=== PATIENT | male | born 1950 | race Caucasian/White ===

== ENCOUNTER → 2019-12-16 10:35 | Outpatient (CLI) | payer OTHER, SELFPAY ==
[2019-10-30 12:54] VITALS: BMI 36.2
--- NOTE | 2019-12-17 08:11 | PFT ---
INTRODUCTION: The patient is a 68-year-old male that presents for pulmonary function studies secondary to a diagnosis of dyspnea on exertion. Respiratory therapy reports good patient effort. Bronchodilators were used during testing. INTERPRETATION: Forced expiration spirometry demonstrates no evidence of any large airways obstructive ventilatory defect. There was no significant response to aerosolized bronchodilators. Spirograms are of good quality and plateau normally. Body plethysmography was performed and reveals lung volumes to be within normal limits. Diffusing capacity by single breath CO is also within normal limits. IMPRESSION: Grossly normal pulmonary function studies.
== END ==
PROVIDERS: Referring Provider Internal Medicine Critical Care Medicine; Visit Provider Internal Medicine Critical Care Medicine
DX: R06.00 Dyspnea, unspecified (principal)
CPT/HCPCS: 94060; 94726; 94729

== ENCOUNTER → 2019-12-17 12:39 | Outpatient (CLI) | payer OTHER, SELFPAY ==
[2019-10-30 12:54] VITALS: BMI 36.2
[2019-12-17 12:45] VITALS: PULSE 112; PULSE 114; PULSE 115; PULSE 119; PULSE 122; PULSE 123; PULSE 95; PULSE 98; O2SAT 93; O2SAT 94; O2SAT 96; O2SAT 97
--- NOTE | 2019-12-19 08:40 | PCM.PSN.6M ---
PSN 6 Minute Walk Test - 6 Minute Walk Test 6 Minute Walk Test: 6 Minute Walk Test PSN:6-Minute Walk Test Start: 12/17/19 14:00 Freq: Status: Active Protocol: [id number].6MINW Document 12/17/19 12:45 FR (Rec: 12/17/19 14:06 FR [id number]) 6 Minute Walk Test Date Performed 12/17/19 Time Performed 12:45 Height 5 ft 10.87 in Weight: 258 lb Weight in Pounds 258.[address]: Dr. Mora Assistive device used: None Pre-test Oxygen Delivery Method Room Air Pulse Ox (%) 97 Pulse Rate (60-100 beats/min) 95 Dyspnea Du Scale (0-10) 2 Exertion Du Scale (6-20) 7 1st minute Oxygen Delivery Method Room Air Pulse Ox (%) 96 Pulse Rate (60-100 beats/min) 112 H 2nd minute Oxygen Delivery Method Room Air Pulse Ox (%) 93 Pulse Rate (60-100 beats/min) 114 H 3rd minute Oxygen Delivery Method Room Air Pulse Ox (%) 93 Pulse Rate (60-100 beats/min) 115 H 4th minute Oxygen Delivery Method Room Air Pulse Ox (%) 94 Pulse Rate (60-100 beats/min) 119 H 5th minute Oxygen Delivery Method Room Air Pulse Ox (%) 93 Pulse Rate (60-100 beats/min) 122 H 6th minute Oxygen Delivery Method Room Air Pulse Ox (%) 93 Pulse Rate (60-100 beats/min) 123 H Dyspnea Du Scale (0-10) 1 Exertion Du Scale (6-20) 8 Post-test Oxygen Delivery Method Room Air Pulse Ox (%) 96 Pulse Rate (60-100 beats/min) 98 Full Laps Walked 22 Partial Lap, Number of Tiles Walked 57 Total Distance Walked (ft) 1355 - Interpretation Interpretation: The patient ambulated 1355 feet over the course of 6 minutes beginning on room air without assistive devices or breaks. Pretesting oxygen saturation was noted to be 97% on room air. With ambulation, the emerald oxygen saturation was 93%. Although there was no significant exertional oxygen desaturation, the patient did become progressively tachycardic with exertion. - Recommendations Recommendations: There is no indication for the use of supplemental oxygen at this time.
== END ==
PROVIDERS: Referring Provider Internal Medicine Critical Care Medicine; Visit Provider Internal Medicine Critical Care Medicine
DX: R06.00 Dyspnea, unspecified (principal)
CPT/HCPCS: 94618

== ENCOUNTER 2020-07-19 07:46 | Day surgery (SDC) | payer OTHER, SELFPAY ==
[2020-06-29 10:24] VITALS: BMI 37.6
[2020-07-19] VITALS (10 sets, daily range): BP systolic 92–133; BP diastolic 60–79; PULSE 76–96; RESP 15–18; TEMP 36.3–37.5; O2SAT 93–96; BMI 36.9
--- NOTE | 2020-07-19 07:00 | HP_ITS ---
Intake Vital Signs 06/29/20 Height 5 ft 10 in 06/29/20 Weight: 262 lb 8 oz 06/29/20 BMI 37.6 06/29/20 BP 143/74 H 06/29/20 Blood Pressure Location Rt brachial 06/29/20 Position Sitting 06/29/20 Respiration 18 06/29/20 Pulse 80 06/29/20 Pulse Source NIBP 06/29/20 Temp 98.2 F 06/29/20 Temp Source Temporal 06/29/20 Pulse Oximetry (%) 97 06/29/20 Oxygen Delivery Method room air Intake Visit Reasons: C-SCOPE Chief Complaint: colonoscopy Seaman Required: No Is patient in pain?: No Allergies metoprolol Adverse Reaction (Mild, Verified 06/29/20 10:25) GI upset atorvastatin [From Lipitor] Adverse Reaction (Verified 03/31/20 11:06) muscle aches Medications alogliptin 25 mg tablet 25 mg PO DAILY 10/30/19 [History Confirmed 06/29/20] aspirin 81 mg tablet,delayed release 81 mg PO DAILY 10/30/19 [History Confirmed 06/29/20] finasteride 5 mg tablet 5 mg PO DAILY 10/30/19 [History Confirmed 06/29/20] fluticasone propionate 50 mcg/actuation nasal spray,suspension 1 spray INTRANASAL DAILY 10/30/19 [History Confirmed 06/29/20] glipizide 10 mg tablet 10 mg PO DAILY 10/30/19 [History Confirmed 06/29/20] insulin glargine 100 unit/mL subcutaneous solution 50 unit SC QPM 10/30/19 [History Confirmed 06/29/20] isosorbide dinitrate 30 mg tablet 30 mg PO ONCE tab 10/30/19 [History Confirmed 06/29/20] losartan 25 mg tablet 25 mg PO DAILY 10/30/19 [History Confirmed 06/29/20] metoprolol succinate 25 mg capsule sprinkle, ext. release 24 hr 25 mg PO DAILY 10/30/19 [History Confirmed 06/29/20] omega 8-hau-lci-fish oil 1,000 mg (120 mg-180 mg) capsule 1 cap PO DAILY 10/30/19 [History Confirmed 06/29/20] omeprazole 20 mg capsule,delayed release 20 mg PO DAILY 10/30/19 [History Confirmed 06/29/20] rosuvastatin 40 mg sprinkle capsule 40 mg PO DAILY 10/30/19 [History Confirmed 06/29/20] tamsulosin 0.4 mg capsule 0.4 mg PO DAILY 10/30/19 [History Confirmed 06/29/20] multivitamin 1 tablet PO DAILY 06/29/20 [History Confirmed 06/29/20] pregabalin 50 mg capsule 50 mg PO TID 06/29/20 [History Confirmed 06/29/20] psyllium husk 0.52 gram capsule 0.52 gm PO DAILY 06/29/20 [History Confirmed 06/29/20] [facility] Medical History (Updated 06/29/20 @ 10:16 by Shantel Díaz) Pulmonary embolism (Resolved) Angina at rest (Acute) Neuropathy (Acute) Diabetes (Acute) BPH (benign prostatic hyperplasia) (Acute) CAD (coronary artery disease) (Acute) GERD (gastroesophageal reflux disease) (Acute) History of colon polyps (Acute) Hyperlipidemia (Acute) Renal calculi (Acute) Sleep apnea (Acute) Anemia (Resolved) Surgical History (Updated 06/29/20 @ 10:23 by Shantel Díaz) Hx of appendectomy (Resolved) History of colonoscopy (Acute) History of esophagogastroduodenoscopy (EGD) (Acute) History of cholecystectomy (Resolved) Family History Father CVA (cerebral vascular accident) Mother Heart disease Brother Heart disease Cancer Social History (Updated 06/29/20 @ 10:[address] Tracie Dior MD) Smoking Status: Former smoker quit date: 03/26/99 pack-years: 23 HPI HPI HPI: HENOK ORTEGA, is a 69 M who presents to the office today for HPI HPI Surgical H&P: Yes HPI: HENOK ORTEGA, is a 69 M who presents to the office today for colonoscopy due to multiple colon polyps as well as poor prep. Patient last colonoscopy was in August 2018 at the [facility]. 6 polyps were removed all less than 8 mm in size. Due to note patient had poor prep and recommended a repeat colonoscopy in 1 year. Patient states he has bowel once daily denies any blood denies any abdominal pain. Denies any family history of colon cancer. Patient does take an 81 mg aspirin. Patient states he was having a little bit issue with constipation but did increase his fiber which did help. ROS General General: Yes fatigue; no weight change, appetite, colon cancer, breast cancer or weakness HEENT HEENT: No difficulty swallowing, eye injury, eye surgery, swollen glands or hoarseness Endo Endocrine: Yes diabetes mellitus; no thyroid disease, thyroid cancer, Hair loss, heat intolerance or cold intolerance Musc Musculoskeletal: Yes back problems and arthritis; no rheumatoid arthritis, gout or joint pain Cardio Cardiovascular: Yes heart disease and high blood pressure; no pacemaker, atrial fibrillation, heart attack, heart stent, palpitations, shortness of breat with exertion or chest pain Psych Psychiatric: No depression, anxiety or hearing voices Resp Respiratory: No shortness of breath, No sleep apnea, No cough, No COPD, No asthma, No emphysema, No wheezing Gastro Gastrointestinal: No abdominal pain, No nausea or vomiting, No diarrhea, Yes constipation, No blood in stool, No acid reflux, No hemorrhoids, No ulcers, No gallbladder problem, No black,tarry stools Yordan Hematologic: No blood thinners, No blood disorders, No bleeding, No anemia, No blood clots Additional Details: history of pulmonary embolism Neuro Neurologic: No weakness Exam Const General: cooperative, comfortable, no acute distress Resp Effort & Inspection: normal respiratory effort Cardio Rate: regular rate GI Inspection: non-distended Palpation: soft, no guarding, nontender Psych Affect: normal affect Assessment & Plan Problems 1. Hx of colonic polyp Z86.010 Plan We will repeat colonoscopy last one was done in August 2018 due to multiple polyps as well as poor prep. I have discussed the above with the patient. I have offered the patient colonoscopy for evaluation. Scheduled for 07/19/2020 I have explained the risks/benefits of the procedure and described the procedure. I have discussed the risks with the patient, including but not limited to: infection, bleeding, perforation of the GI tract requiring emergency surgery, inability to complete the procedure, injury to any internal organs, complications of anesthesia, etc. - the patient understands and agrees to proceed. I have answered all the patient's questions to the patient's satisfaction and the patient has no further questions. The patient has been given instructions for the colon cleansing preparation. Mov[facility] will have patient take both doses day prior Tracie Dior M.D. Pager: [phone] [facility] [address] [place] [address], [facility] [address] [place] [address] Office: [phone] Plan Detail Follow Up We will schedule colonoscopy Coding Level of Care Code Off vis,new,level 3 Diagnoses Hx of colonic polyp Z86.010 COVID (Procedure Consent) Procedure Criteria Procedure Criteria: Yes Elective The surgeon/proceduralist and patient have discussed in detail the risk of exposure to and/or potential harm posed by the COVID-19 virus with having a surgery/procedure at this time versus the risk of? delaying the surgery/procedure. It is not possible to know either the risk of delaying the surgery or procedure or chance of getting an infection with perfect accuracy, but a joint decision was made between the patient and the surgeon/proceduralist ?to proceed at this time with the scheduled surgery/procedure as indicated on the consent form. I have re-examined the patient. There are no clinical changes since date of exam.
[2020-07-19] MEDS: Lactated Ringers 1,000 ML 100 ML IV (08:28)
[2020-07-19 08:36] LABS: Bedside Glucose 143 mg/dL (70-110)
--- NOTE | 2020-07-19 09:00 | COLBX_PTH ---
PATIENT: HENOK ORTEGA LOC: EN U#:[id number] AGE/SX: 69/M ROOM: RE07/19/[address]: Dr. Tracie Dior MD : 1950 BED: DIS: 07/19/2020 SPEC #: [id number] RECD: 07/19/20 10:50 STATUS: ALBERT REAndrew #: [id number] SAVANNA: 07/19/20 09:[address]: Tracie Dior DEPT: SURGICAL PATHOLOGY RECD BY: Teri Kaur ENTERED: 07/19/20 10:59 SP TYPE: COLON BX SAMUEL DR: [facility] Tissues: Sigmoid colon biopsy Procedures: Surgery Specimen Level IV HEADER OPERATION: Colonoscopy (MAC) PRE-OP DIAGNOSIS: Colonic polyp TISSUE SUBMITTED: Sigmoid colon polyp hot snare MICROSCOPIC DIAGNOSIS Sigmoid colon polyp, biopsy: Tubular adenoma. AM:ralph 07/20/2020 MICROSCOPIC DESCRIPTION Slides are reviewed. GROSS DESCRIPTION Received in fixative is one container labeled with the patient's name and designated sigmoid colon polyp. The specimen consists of a herrera-pink polyp measuring 0.5 x 0.5 x 0.3 cm. The specimen is totally submitted in one cassette. / SJ:ralph 07/19/20 TC:5 CPT: 63624
--- NOTE | 2020-07-19 14:58 | OP.CCLET_ITS ---
07/19/2020 [facility] Re : Colonoscopy procedure for [facility] This procedure was performed on Sunday, July 19, 2020. My impressions and recommendations are as follows: Impressions : - Hemorrhoids found on perianal exam. - Non-bleeding external and internal hemorrhoids. - Diverticulosis in the descending colon, at the splenic flexure and in the ascending colon. - One less than 5 mm polyp in the sigmoid colon, removed with a hot snare. Resected and retrieved. - The examination was otherwise normal. Recommendations : - Discharge patient to home. - High fiber diet. - Continue present medications. - Await pathology results. - Repeat colonoscopy in 5 years for surveillance based on pathology results. My findings are described in the full procedure note, which is enclosed. If I can be of further assistance, please feel free to contact me at Doctor phone number(s): , Work: . Sincerely, MD Tracie Mondragon MD 07/19/2020 9:27:03 AM This report has been signed electronically.
--- NOTE | 2020-07-19 14:58 | OP.COLON_ITS ---
Patient Name: Jaziel Paez Procedure Date: 07/19/2020 8:38 AM Date of : 1950 Age: 69 Procedure: Colonoscopy Indications: High risk colon cancer surveillance: Personal history of colonic polyps, poor prep with previous colonoscopy Providers: Tracie Dior MD Referring MD: Tracie Dior MD Medicines: Monitored Anesthesia Care Patient Profile: This is a 69 year old male. Last Colonoscopy: 2018. Complications: No immediate complications. Procedure: Pre-Anesthesia Assessment: - Prior to the procedure, a History and Physical was performed, and patient medications and allergies were reviewed. The patient's tolerance of previous anesthesia was also reviewed. The risks and benefits of the procedure and the sedation options and risks were discussed with the patient. All questions were answered, and informed consent was obtained. Prior Anticoagulants: The patient has taken aspirin, last dose was 1 day prior to procedure. ASA Grade Assessment: Per anesthesia. After reviewing the risks and benefits, the patient was deemed in satisfactory condition to undergo the procedure. After I obtained informed consent, the scope was passed under direct vision. Throughout the procedure, the patient's blood pressure, pulse, and oxygen saturations were monitored continuously. The adult colonoscope was introduced through the anus and advanced to the cecum, identified by the appendiceal orifice, ileocecal valve and palpation. The colonoscopy was performed without difficulty. The patient tolerated the procedure well. The quality of the bowel preparation was good after lavage. Scope In: 8:51:48 AM Scope Withdrawal Time 0 hours 22 minutes 12 seconds Scope Out: 9:20:45 AM Total Procedure Duration Time 0 hours 28 minutes 57 seconds Findings: Hemorrhoids were found on perianal exam. Non-bleeding external and internal hemorrhoids were found. The hemorrhoids were Grade I (internal hemorrhoids that do not prolapse). Many small and large-mouthed diverticula were found in the descending colon, splenic flexure and ascending colon. A less than 5 mm polyp was found in the sigmoid colon. The polyp was semi-sessile. The polyp was removed with a hot snare. Resection and retrieval were complete. The exam was otherwise without abnormality. Impression: - Hemorrhoids found on perianal exam. - Non-bleeding external and internal hemorrhoids. - Diverticulosis in the descending colon, at the splenic flexure and in the ascending colon. - One less than 5 mm polyp in the sigmoid colon, removed with a hot snare. Resected and retrieved. - The examination was otherwise normal. Recommendation: - Discharge patient to home. - High fiber diet. - Continue present medications. - Await pathology results. - Repeat colonoscopy in 5 years for surveillance based on pathology results. Procedure Code(s): --- Professional --- 27873, PT, Colonoscopy, flexible; with removal of tumor(s), polyp(s), or other lesion(s) by snare technique Diagnosis Code(s): --- Professional --- Z86.010, Personal history of colonic polyps K64.0, First degree hemorrhoids D12.5, Benign neoplasm of sigmoid colon K57.30, Diverticulosis of large intestine without perforation or abscess without bleeding CPT copyright 2017 [employer]. All rights reserved. The codes documented in this report are preliminary and upon smoking pipe mounter review may be revised to meet current compliance requirements. MD Tracie Mondragon MD 07/19/2020 9:27:03 AM This report has been signed electronically. Number of Addenda: 0 Note Initiated On: 07/19/2020 8:38 AM
== END 2020-07-19 11:02 | disposition home or self-care (01) ==
LOC: EN 07:46 → AC 07:47
PROVIDERS: Referring Provider Surgery; Visit Provider Surgery
PROC: 0DJD8ZZ Inspection of Lower Intestinal Tract, Via Natural or Artificial Opening Endoscopic (ICD-10-PCS; CPT 45378; principal; 2020-07-19 08:55)
DX: Z12.11 Encounter for screening for malignant neoplasm of colon (principal); D12.5 Benign neoplasm of sigmoid colon; K64.0 First degree hemorrhoids; K57.30 Diverticulosis of large intestine without perforation or abscess without bleeding; I25.10 Atherosclerotic heart disease of native coronary artery without angina pectoris; I10 Essential (primary) hypertension; I35.0 Nonrheumatic aortic (valve) stenosis; G47.30 Sleep apnea, unspecified; K21.9 Gastro-esophageal reflux disease without esophagitis; E11.40 Type 2 diabetes mellitus with diabetic neuropathy, unspecified; E78.5 Hyperlipidemia, unspecified; Z79.82 Long term (current) use of aspirin; Z79.4 Long term (current) use of insulin; Z79.899 Other long term (current) drug therapy; Z86.010 Personal history of colon polyps; Z87.891 Personal history of nicotine dependence
CPT/HCPCS: 45385; 82962; 88305; J7120; J2405

== ENCOUNTER 2022-07-19 07:32 | Day surgery (SDC) | payer OTHER, SELFPAY ==
[2022-07-19] VITALS (7 sets, daily range): BP systolic 118–141; BP diastolic 70–86; PULSE 75–98; RESP 16–18; TEMP 36.4–37.1; O2SAT 94–98; BMI 33.0
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
[2022-07-19] MEDS: Lactated Ringers 1,000 ML 15 ML IV (08:20)
[2022-07-19] MEDS: Dextrose 5%-Lactated Ringers 1,000 ML 15 ML IV (08:48)
--- NOTE | 2022-07-19 09:00 | IMM_PTH ---
PATIENT: HENOK ORTEGA LOC: EN U#:[id number] AGE/SX: 71/M ROOM: RE07/19/[address]: Dr. Tracie Dior MD : 1950 BED: DIS: 07/19/2022 SPEC #: [id number] RECD: 07/19/22 12:04 STATUS: ALBERT DHALIWAL #: [id number] SAVANNA: 07/19/22 09:[address]: Tracie Dior DEPT: IMMUNOHISTOCHEMISTRY RECD BY: Nicky Atkins ENTERED: 07/19/22 12:08 SP TYPE: IMMUNO OTHR DR: [facility] Tissues: A - Stomach, NOS Procedures: H Pylori (initial) PHYSICIAN & INSTITUTION [place] [id number] SPECIMEN INFORMATION: Tissue Source: A ? Antrum biopsy Clinical Info: GERD, diarrhea Specimen Number: [id number] CPT code: 32049 METHODOLOGY: Deparaffinized sections of prefer/formalin-fixed tissue or PAP/DQ stained slides are incubated with monoclonal/polyclonal antibodies/oligonucleotide probes. Localization is made via biotin free immunoperoxidase method. Appropriate controls are performed and reacted as expected. Results on target cell population are indicated in the following table: RESULTS: ANTIBODY / CLONE RESULT Block A H Pylori (polyclonal) negative These tests were developed and their performance characteristics determined by [facility]. They may not have been cleared or approved by the U.S. Food and Drug Administration. The FDA has determined that such clearance or approval is not necessary. The above immunohistochemical/dualISH markers are ordered and reviewed by the Pathologist. INTERPRETATION: A. Antrum, biopsy: Negative for Helicobacter pylori organisms. AM:ralph 07/20/2022
--- NOTE | 2022-07-19 09:00 | EGD_PTH ---
PATIENT: HENOK ORTEGA LOC: EN U#:[id number] AGE/SX: 71/M ROOM: RE07/19/[address]: Dr. Tracie Dior MD : 1950 BED: DIS: 07/19/2022 SPEC #: [id number] RECD: 07/19/22 10:50 STATUS: ALBERT DHALIWAL #: [id number] SAVANNA: 07/19/22 09:[address]: Tracie Dior DEPT: SURGICAL PATHOLOGY RECD BY: Teri Kaur ENTERED: 07/19/22 12:23 SP TYPE: EGD BIOPSY OT DR: [facility] Tissues: A - Gastric mucous membrane B - Gastric mucous membrane C - Sigmoid colon biopsy Procedures: Surgery Specimen Level IV HEADER OPERATION: Colonoscopy with biopsy, EGD ([place]) with biopsies PRE-OP DIAGNOSIS: GERD, diarrhea TISSUE SUBMITTED: A ? Antrum biopsy for H. pylori and path, B ? Gastric body nodule mucosal biopsy, C ? Sigmoid polyp biopsy MICROSCOPIC DIAGNOSIS A. Gastric antrum, biopsy: Chronic gastritis. See comment. B. Gastric body nodule, biopsy: Fragment of gastric mucosa with mild chronic inflammation. C. Sigmoid colon polyp, biopsy: Polypoid colonic mucosa with no pathologic change. AM:ralph 07/20/2022 COMMENT A. The results of immunohistochemistry for Helicobacter pylori will be reported separately ([id number]). MICROSCOPIC DESCRIPTION Slides are reviewed. GROSS DESCRIPTION A - Received in fixative is one container labeled with the patient's name and designated gastric antrum. The specimen consists of one irregular fragment of light herrera soft tissue that measures 0.6 x 0.5 x 0.1 cm. The specimen is totally submitted in one cassette. B - Received in fixative is one container labeled with the patient's name and designated gastric body. The specimen consists of one irregular fragment of light herrera soft tissue that measures 0.8 x 0.3 x 0.1 cm. The specimen is totally submitted in one cassette. C - Received in fixative is one container labeled with the patient's name and designated sigmoid polyp. The specimen consists of one irregular fragment of light herrera soft tissue that measures 0.5 x 0.5 x 0.1 cm. The specimen is totally submitted in one cassette. / AM:ralph 07/19/2022 TC:3 CPT: 30173 x3
--- NOTE | 2022-07-19 09:34 | OP.CCLET_ITS ---
07/19/2022 [facility] Re : Upper GI endoscopy procedure for [facility] This procedure was performed on Tuesday, July 19, 2022. My impressions and recommendations are as follows: Impressions : - Z-line regular, 40 cm from the incisors. - Erythematous mucosa in the antrum. Biopsied. - Nodular mucosa in the gastric body. Biopsied. - The examination was otherwise normal. Recommendations : - Discharge patient to home. - Resume previous diet. - Continue present medications. - Await pathology results. - Use sucralfate tablets 1 gram PO QID for 2 weeks. My findings are described in the full procedure note, which is enclosed. If I can be of further assistance, please feel free to contact me at Doctor phone number(s): , Work: . Sincerely, MD Tracie Mondragon MD 07/19/2022 9:34:01 AM This report has been signed electronically.
--- NOTE | 2022-07-19 09:34 | OP.EGD_ITS ---
Patient Name: Jaziel Paez Procedure Date: 07/19/2022 8:48 AM Date of : 1950 Age: 71 Procedure: Upper GI endoscopy Indications: Heartburn Providers: Tracie Dior MD Medicines: Monitored Anesthesia Care Patient Profile: This is a 71 year old male. Complications: No immediate complications. Procedure: Pre-Anesthesia Assessment: - Prior to the procedure, a History and Physical was performed, and patient medications and allergies were reviewed. The patient's tolerance of previous anesthesia was also reviewed. The risks and benefits of the procedure and the sedation options and risks were discussed with the patient. All questions were answered, and informed consent was obtained. Prior Anticoagulants: The patient has taken no previous anticoagulant or antiplatelet agents. ASA Grade Assessment: Per anesthesia. After reviewing the risks and benefits, the patient was deemed in satisfactory condition to undergo the procedure. After obtaining informed consent, the endoscope was passed under direct vision. Throughout the procedure, the patient's blood pressure, pulse, and oxygen saturations were monitored continuously. The Colonoscope was introduced through the mouth, and advanced to the second part of duodenum. The upper GI endoscopy was accomplished without difficulty. The patient tolerated the procedure well. Scope In: 8:58:16 AM Scope Out: 9:03:42 AM Total Procedure Duration Time 0 hours 5 minutes 26 seconds Findings: The Z-line was regular and was found 40 cm from the incisors. The cardia and gastric fundus were normal on retroflexion. Striped moderately erythematous mucosa without bleeding was found in the gastric antrum. Biopsies were taken with a cold forceps for histology. Biopsies were taken with a cold forceps for Helicobacter pylori cultures. Nodular mucosa was found in the gastric body. Biopsies were taken with a cold forceps for histology. The exam was otherwise without abnormality. Impression: - Z-line regular, 40 cm from the incisors. - Erythematous mucosa in the antrum. Biopsied. - Nodular mucosa in the gastric body. Biopsied. - The examination was otherwise normal. Recommendation: - Discharge patient to home. - Resume previous diet. - Continue present medications. - Await pathology results. - Use sucralfate tablets 1 gram PO QID for 2 weeks. Procedure Code(s): --- Professional --- 33619, PT, Esophagogastroduodenoscopy, flexible, transoral; with biopsy, single or multiple Diagnosis Code(s): --- Professional --- K31.89, Other diseases of stomach and duodenum R12, Heartburn CPT copyright 2017 [employer]. All rights reserved. The codes documented in this report are preliminary and upon county superintendent of schools review may be revised to meet current compliance requirements. MD Tracie Mondragon MD 07/19/2022 9:34:01 AM This report has been signed electronically. Number of Addenda: 0 Note Initiated On: 07/19/2022 8:48 AM
--- NOTE | 2022-07-19 09:43 | OP.CCLET_ITS ---
07/19/2022 [facility] Re : Colonoscopy procedure for [facility] This procedure was performed on Tuesday, July 19, 2022. My impressions and recommendations are as follows: Impressions : - Hemorrhoids found on perianal exam. - Non-bleeding internal hemorrhoids. - Diverticulosis in the sigmoid colon and in the transverse colon. - One less than 5 mm polyp in the sigmoid colon, removed with a cold biopsy forceps. Resected and retrieved. Recommendations : - Discharge patient to home. - High fiber diet. - Continue present medications. - Await pathology results. - Repeat colonoscopy in 5 years for surveillance based on pathology results. My findings are described in the full procedure note, which is enclosed. If I can be of further assistance, please feel free to contact me at Doctor phone number(s): , Work: . Sincerely, MD Tracie Mondragon MD 07/19/2022 9:42:34 AM This report has been signed electronically.
--- NOTE | 2022-07-19 09:43 | OP.COLON_ITS ---
Patient Name: Jaziel Paez Procedure Date: 07/19/2022 9:03 AM Date of : 1950 Age: 71 Procedure: Colonoscopy Indications: Chronic diarrhea Providers: Tracie Dior MD Medicines: Monitored Anesthesia Care Patient Profile: This is a 71 year old male. Last Colonoscopy: within the past 3 years. Complications: No immediate complications. Procedure: Pre-Anesthesia Assessment: - Prior to the procedure, a History and Physical was performed, and patient medications and allergies were reviewed. The patient's tolerance of previous anesthesia was also reviewed. The risks and benefits of the procedure and the sedation options and risks were discussed with the patient. All questions were answered, and informed consent was obtained. Prior Anticoagulants: The patient has taken no previous anticoagulant or antiplatelet agents. ASA Grade Assessment: Per anesthesia. After reviewing the risks and benefits, the patient was deemed in satisfactory condition to undergo the procedure. After I obtained informed consent, the scope was passed under direct vision. Throughout the procedure, the patient's blood pressure, pulse, and oxygen saturations were monitored continuously. The Colonoscope was introduced through the anus and advanced to the cecum, identified by the appendiceal orifice, ileocecal valve and palpation. The colonoscopy was performed without difficulty. The patient tolerated the procedure well. The quality of the bowel preparation was good. Scope In: 9:05:13 AM Scope Withdrawal Time 0 hours 12 minutes 29 seconds Scope Out: 9:27:02 AM Total Procedure Duration Time 0 hours 21 minutes 49 seconds Findings: Hemorrhoids were found on perianal exam. Non-bleeding internal hemorrhoids were found. The hemorrhoids were Grade I (internal hemorrhoids that do not prolapse). Scattered small-mouthed diverticula were found in the sigmoid colon and transverse colon. A less than 5 mm polyp was found in the sigmoid colon. The polyp was sessile. The polyp was removed with a cold biopsy forceps. Resection and retrieval were complete. Impression: - Hemorrhoids found on perianal exam. - Non-bleeding internal hemorrhoids. - Diverticulosis in the sigmoid colon and in the transverse colon. - One less than 5 mm polyp in the sigmoid colon, removed with a cold biopsy forceps. Resected and retrieved. Recommendation: - Discharge patient to home. - High fiber diet. - Continue present medications. - Await pathology results. - Repeat colonoscopy in 5 years for surveillance based on pathology results. Procedure Code(s): --- Professional --- 34552, Colonoscopy, flexible; with biopsy, single or multiple Diagnosis Code(s): --- Professional --- K64.0, First degree hemorrhoids D12.5, Benign neoplasm of sigmoid colon K52.9, Noninfective gastroenteritis and colitis, unspecified K57.30, Diverticulosis of large intestine without perforation or abscess without bleeding CPT copyright 2017 [employer]. All rights reserved. The codes documented in this report are preliminary and upon auto emissions technician review may be revised to meet current compliance requirements. MD Tracie Mondragon MD 07/19/2022 9:42:34 AM This report has been signed electronically. Number of Addenda: 0 Note Initiated On: 07/19/2022 9:03 AM
[2022-07-19 10:10] LABS: Bedside Glucose 202 mg/dL (74-106)
[2022-07-19 10:35] LABS: Bedside Glucose 68 mg/dL (74-106)
== END 2022-07-19 10:41 | disposition home or self-care (01) ==
LOC: EN 07:32 → AC 07:34
PROVIDERS: Referring Provider Surgery; Visit Provider Surgery
PROC: 0DJD8ZZ Inspection of Lower Intestinal Tract, Via Natural or Artificial Opening Endoscopic (ICD-10-PCS; CPT 45378; principal; 2022-07-19 08:55)
DX: K29.50 Unspecified chronic gastritis without bleeding (principal); Z79.4 Long term (current) use of insulin; E11.9 Type 2 diabetes mellitus without complications; K31.89 Other diseases of stomach and duodenum; K63.5 Polyp of colon; K57.30 Diverticulosis of large intestine without perforation or abscess without bleeding; K64.0 First degree hemorrhoids; K21.9 Gastro-esophageal reflux disease without esophagitis; R19.7 Diarrhea, unspecified; N40.0 Benign prostatic hyperplasia without lower urinary tract symptoms; F32.A Depression, unspecified; I25.10 Atherosclerotic heart disease of native coronary artery without angina pectoris; F43.10 Post-traumatic stress disorder, unspecified; Z86.711 Personal history of pulmonary embolism; Z79.82 Long term (current) use of aspirin; Z79.899 Other long term (current) drug therapy; Z86.010 Personal history of colon polyps; Z87.891 Personal history of nicotine dependence
CPT/HCPCS: 45380; 43239; 82962; 88305; 88342; J7120; J2405

== ENCOUNTER → 2023-05-31 | Outpatient (CLI) | payer OTHER, SELFPAY ==
--- NOTE | 2023-05-31 13:39 | ECHOD_ITS ---
Reason For Study: CHRONIC ISHEMIC HEART DISEASE Procedure This was a 2D Doppler, Color Flow transthoracic echocardiogram. Exam performed in department. Left Ventricle Normal size and thickness. The left ventricular ejection fraction is 65 %. Normal diastology for age. Right Ventricle Normal right ventricle. Atria The left and right atria are normal. Mitral Valve Mild mitral annular calcification. Trivial mitral valve insufficiency. Tricuspid Valve Trivial tricuspid valve insufficiency. Normal pulmonary artery pressure. Aortic Valve Mild diffuse aortic valve calcification. Mild aortic stenosis. Pulmonic Valve The pulmonic valve is not well visualized. Great Vessels Normal sized aortic root. Pericardium/Pleural No pericardial effusion. MMode/2D Measurements & Calculations LVIDd: 4.7 cm IVSd: 0.88 cm LVOT diam: 2.0 cm LVIDs: 3.0 cm LVPWd: 1.0 cm LVOT area: 3.2 cm2 RVDd: 3.7 cm FS: 35.2 % Ao root diam: 3.2 cm LAV(MOD-bp): 26.4 ml LVAd ap4: 30.6 cm2 LAV(MOD-bp) Indexed: 11.6 ml/m2 LVLd ap4: 8.4 cm LAV(MOD-sp2): 28.2 ml EDV(MOD-sp4): 94.7 ml LAV(MOD-sp4): 24.0 ml EDV(sp4-el): 95.3 ml LVAs ap4: 17.5 cm2 LVLs ap4: 7.2 cm ESV(MOD-sp4): 35.5 ml ESV(sp4-el): 36.1 ml EF(MOD-sp4): 62.5 % EF(sp4-el): 62.1 % SV(MOD-sp4): 59.2 ml SV(sp4-el): 59.2 ml LA A4 area: 11.5 cm2 LA dimension(2D): 3.4 cm RA A4 area: 9.6 cm2 TAPSE: 2.4 cm Time Measurements MV dec time: 0.26 sec Doppler Measurements & Calculations MV E max troy: 63.1 cm/sec Lat Peak E' Troy: 6.8 cm/sec Med Peak E' Troy: 7.4 cm/sec MV A max troy: 87.9 cm/sec E/E' lat: 9.3 E/E' med: 8.5 MV E/A: 0.72 Ao V2 max: 213.7 cm/sec LV V1 max: 103.9 cm/sec SV(LVOT): 63.9 ml Ao max P.3 mmHg LV V1 max P.3 mmHg Ao V2 mean: 153.5 cm/sec LV V1 mean P.4 mmHg Ao mean P.5 mmHg LV V1 mean: 74.2 cm/sec Ao V2 VTI: 39.5 cm LV V1 VTI: 19.9 cm AV (velocity ratio): 0.50 JEFF(I,D): 1.6 cm2 JEFF(V,D): 1.6 cm2 PA V2 max: 87.9 cm/sec TR max troy: 240.4 cm/sec TR max P.1 mmHg ECHO/Echo Complete Interpretation Summary The left ventricular ejection fraction is 65 %. Mild mitral annular calcification. Mild aortic stenosis. Ordering Physician: Walter Deleon Referring Physician: Walter Deleon Performed By: Yari Mckeon RDCS
== END | disposition home or self-care (01) ==
LOC: CVS 13:38
PROVIDERS: Referring Provider Chiropractor; Visit Provider Chiropractor
DX: I25.10 Atherosclerotic heart disease of native coronary artery without angina pectoris (principal)
CPT/HCPCS: 93306

== ENCOUNTER → 2025-03-23 | Outpatient (CLI) | payer OTHER, SELFPAY ==
--- NOTE | 2025-03-23 09:54 | ART_ITS ---
Reason For Study Reason For Study: PVD Procedure A bilateral lower extremity continuous wave Doppler with analog waveform analysis,segmental pressures,and ankle brachial indexes without exercise. Left Segmental Pressures Left brachial= 111mmHg. Left posterior tibial artery = >254mmHg. Left dorsalis pedis artery = >254mmHg. Left digit = 97 mmHg. The left posterior tibial artery waveforms are triphasic. The left dorsalis pedis waveforms are triphasic. Right Segmental Pressures Right brachial= 117mmHg. Right posterior tibial artery = 167mmHg. Right dorsalis pedis artery = >254mmHg. Right digit = 92 mmHg. The right posterior tibial artery waveforms are triphasic. The right dorsalis pedis waveforms are triphasic. Indices The right ankle brachial index by the posterior tibial artery is 1.43. The right ankle brachial index by the dorsalis pedis is N/C. The right digital-brachial index is 0.79. The left ankle brachial index by the posterior tibial artery is N/C. The left ankle brachial index by the dorsalis pedis is N/C. The left post exercise ankle brachial index is 0.83. VL/Lower Ext Art Exam w/o Exercis Interpretation Summary Right CLAUDE 1.43, may be artificially elevated. TBI and Doppler/PVR waveforms of the right leg normal at rest. Left CLAUDE not able to be obtained due to non-compressible vessels. TBI and Doppl er/PVR waveforms of the left leg normal at rest. Ordering Physician: Jocelyn Bell Referring Physician: [facility] Performed By: Hosea Cortez RVT
--- NOTE | 2025-03-23 10:42 | RAD_ITS ---
PROCEDURE: HIPS B/L MIN 2 VIEWS W/ PELVIS 03/23/2025 REASON FOR EXAM: B/L HIP PAIN TECHNIQUE: Procedure Code: RADHPELP Modality: DX Procedure: HIPS B/L MIN 2 VIEWS W/ PELVIS COMPARISON: Abdomen/pelvis CT 02/07/2025 FINDINGS: Mild hypertrophic spurring off the left acetabulum, compatible with mild arthrosis. Milder degenerative changes about the right hip. Osseous fullness in the right femoral head/neck junction may predispose to cam impingement. No definite SI joint abnormality. No definite fracture or osteonecrosis. Bony irregularities and hypertrophic changes about the margins of the ischial tuberosities and inferior rami. Lower lumbar spondylosis. Visualized bowel pattern is normal. Mild bilateral SI joint degenerative changes. RAD/Hips B/L min 2 views w/ Pelvis IMPRESSION: Nbft-smysvxw-larg-right hip arthrosis and degenerative changes. Osseous fullness in the right femoral head/neck junction may predispose to cam impingement. Spondylosis. Reading Location: [facility]
== END | disposition home or self-care (01) ==
LOC: CVS 09:50
PROVIDERS: Referring Provider Physician Assistant; Visit Provider Physician Assistant
DX: I73.9 Peripheral vascular disease, unspecified (principal); M25.551 Pain in right hip; M25.552 Pain in left hip
CPT/HCPCS: 73521; 93923